=== PATIENT | female | born 1950 | race Caucasian/White ===

== ENCOUNTER → 2018-11-02 | Outpatient (CLI) | payer MEDICARE, OTHER ==
[~2018-11-02] MED LIST: LOSA25TA57 PO; METO25TA23 PO; OMEP-137 PO; POTA20TA94 PO
== END ==
LOC: MAMO 00:08
PROVIDERS: ATTEND Obstetrics & Gynecology
DX: Z02.9 Encounter for administrative examinations, unspecified (principal)
CPT/HCPCS: 77063; 77067